=== PATIENT | female | born 1950 | race Caucasian/White ===

== ENCOUNTER 2020-09-23 15:41 | Outpatient (REF) | payer MEDICARE, SELFPAY ==
--- NOTE | ~2020-09-23 | MM_ITS ---
EXAMINATION: MM SCREENING DIGITAL BREAST TOMOSYNTHESIS, BILATERAL CLINICAL INFORMATION: Screening. Asymptomatic. The lifetime risk of breast cancer based on the Tyrer-Cuzick Model is 5%. COMPARISON: Mammography: 09/18/2019, 09/12/2018, 08/23/2017. TECHNIQUE: Digital breast tomosynthesis is performed in both the craniocaudal and mediolateral oblique views along with computer-aided detection (CAD). Synthesized 2D images are generated from the tomosynthesis. FINDINGS: There are scattered areas of fibroglandular density (ACR BI-RADS breast composition Category b). There are no significant masses, abnormal calcifications, or other abnormalities. The axilla and skin contours are unremarkable. No significant changes. MM/MM tomosynthesis screening BI IMPRESSION: No mammographic evidence of malignancy. ASSESSMENT: BI-RADS 1: Negative RECOMMENDATION: Routine annual mammography screening. This patient's information was entered into a reminder system with a target due date for their next mammogram.
== END 2020-09-23 15:42 | disposition home or self-care (01) ==
LOC: HO.MAMMO 15:41
PROVIDERS: Visit Provider Internal Medicine
DX: Z12.31 Encounter for screening mammogram for malignant neoplasm of breast (principal)
CPT/HCPCS: 77063; 77067

== ENCOUNTER 2021-06-01 08:57 | Outpatient (REF) | payer MEDICARE, SELFPAY ==
[2021-06-01 11:27] LABS: MANUAL DIFF FLAG NO
[2021-06-01 11:35] LABS: Basophils Percent Auto 0.8 % (0-2); Eosinophils Absolute Auto 0.2 X10*3/uL (0.0-0.4); Eosinophils Percent Auto 3.7 % (0-4); Hematocrit 43.2 % (37-47); Hemoglobin 14.3 g/dl (12.0-16.0); Imm Gran Abs Auto 0.01 X10*3/uL (0.00-0.03); Imm Gran Pct Auto 0.2 % (0.0-0.4); Lymphocytes Absolute Auto 1.4 X10*3/uL (1.2-4.9); Lymphocytes Percent Auto 27.6 % (20-40); Mean Corpuscular HGB Conc 33.1 g/dl (31.0-35.0); Mean Corpuscular Volume 87.6 fL (80-98); Mean Platelet Volume 9.1 fL (9.4-12.3); Monocytes Absolute Auto 0.5 X10*3/uL (0.1-1.2); Monocytes Percent Auto 9.1 % (2-11); Neutrophils Absolute Auto 2.9 X10*3/uL (2.0-8.3); Neutrophils Percent Auto 58.6 % (45-73); Platelet Count 239 X10*3/uL (160-400); Red Blood Count 4.93 X10*6/uL (4.20-5.50); Red Cell Distribution Width 13.3 % (11.0-16.0); White Blood Count 4.9 X10*3/uL (4.8-10.8)
[2021-06-01 12:16] LABS: Thyroid Stimulating Hormone 1.83 uIU/mL (0.32-4.0); Vitamin D 25-OH Total 25.4 ng/mL (>30)
== END 2021-06-01 08:58 | disposition home or self-care (01) ==
LOC: HO.HMGCLDS 08:57
PROVIDERS: PCP Internal Medicine; Visit Provider Internal Medicine
DX: R42 Dizziness and giddiness (principal)
CPT/HCPCS: 36415; 82306; 84443; 85025

== ENCOUNTER 2021-06-03 07:39 | Outpatient (REF) | payer MEDICARE, SELFPAY ==
[2021-06-03 12:06] LABS: Alanine Aminotransferase 10 U/L (0-31); Albumin Level 4.3 g/dL (3.5-5.0); Alkaline Phosphatase 76 U/L (39-117); Anion Gap 13 (12-20); Aspartate Amino Transferase 17 U/L (5-31); Bilirubin Total 0.8 mg/dL (0.0-1.0); Blood Urea Nitrogen 13 mg/dL (9-16); Calcium 9.1 mg/dL (8.4-10.2); Carbon Dioxide 29 mmol/L (22-29); Chloride 104 mmol/L (96-108); Cholesterol 222 mg/dL; Estimated Glomerular Filt Rate > 60; Glucose Fasting 80 mg/dL (60-99); HDL Cholesterol 44 mg/dL; LDL Cholesterol Calculated 145 mg/dl; Potassium 3.7 mmol/L (3.3-5.1); Sodium 142 mmol/L (135-145); Triglycerides 168 mg/dL
== END 2021-06-03 07:40 | disposition home or self-care (01) ==
LOC: HO.HMGCLDS 07:39
PROVIDERS: PCP Internal Medicine; Visit Provider Internal Medicine
DX: R42 Dizziness and giddiness (principal)
CPT/HCPCS: 36415; 80053; 80061

== ENCOUNTER 2021-09-28 07:51 | Outpatient (REF) | payer MEDICARE, SELFPAY ==
--- NOTE | ~2021-09-28 | MM_ITS ---
EXAMINATION: MM SCREENING DIGITAL BREAST TOMOSYNTHESIS, BILATERAL CLINICAL INFORMATION: Screening. Asymptomatic. The lifetime risk of breast cancer based on the Tyrer-Cuzick Model is 5%. COMPARISON: Mammography: 09/23/2020, 09/18/2019, 09/12/2018, 08/23/2017, 05/26/2016 TECHNIQUE: Digital breast tomosynthesis is performed in both the craniocaudal and mediolateral oblique views along with computer-aided detection (CAD). Synthesized 2D images are generated from the tomosynthesis. FINDINGS: There are scattered areas of fibroglandular density (ACR BI-RADS breast composition Category b). There are no significant masses, abnormal calcifications, or other abnormalities. There are shifting fibroglandular densities from year to year related to positioning. No developing density or interval architectural changes. No significant change from prior studies. MM/MM tomosynthesis screening BI IMPRESSION: No mammographic evidence of malignancy. ASSESSMENT: BI-RADS 1: Negative RECOMMENDATION: Routine annual mammography screening. This patient's information was entered into a reminder system with a target due date for their next mammogram.
== END 2021-09-28 07:52 | disposition home or self-care (01) ==
LOC: HO.MAMMO 07:51
PROVIDERS: PCP Internal Medicine; Visit Provider Internal Medicine
DX: Z12.31 Encounter for screening mammogram for malignant neoplasm of breast (principal)
CPT/HCPCS: 77063; 77067

== ENCOUNTER 2022-04-23 14:18 | Outpatient (REF) | payer MEDICARE, SELFPAY ==
--- NOTE | ~2022-04-23 | US_ITS ---
EXAMINATION: US VENOUS ULTRASOUND WITH DOPPLER LOWER EXTREMITY, RIGHT CLINICAL INFORMATION: Pain right calf. Assess for occult DVT. COMPARISON: None TECHNIQUE: Ultrasound of the deep veins is performed from the hip to the calf with compression sonography and color and pulse Doppler assessment. Spectral analysis with color-flow imaging is performed. FINDINGS: There is normal venous compression and respiratory variation and augmented flow. The visualized common femoral vein, superficial femoral vein, profunda femoral vein, popliteal vein, and the trifurcation region shows no evidence of deep venous thrombosis. There is fluid collection overlying the musculature posterior medial calf measuring 0.9 cm in thickness by 5 cm in length with fine linear extension more distally into the right lower leg. There is no hyperemia on color Doppler. No visible intramuscular hematoma or soft tissue mass. US/US venous duplex LE RT IMPRESSION: -Superficial fluid collection overlying medial calf musculature 0.9 cm in thickness by 5 cm in length with fine linear extension more distally into the right lower leg. Finding may be related to ruptured popliteal fossa cyst or sequela from trauma. Clinically correlate. -No DVT demonstrated in the right lower extremity.
== END 2022-04-23 14:19 | disposition home or self-care (01) ==
LOC: HO.US 14:18
PROVIDERS: PCP Internal Medicine; Visit Provider Internal Medicine
DX: I82.431 Acute embolism and thrombosis of right popliteal vein (principal)
CPT/HCPCS: 93971

== ENCOUNTER 2022-06-02 08:00 | Outpatient (REF) | payer MEDICARE, SELFPAY ==
[2022-06-02 11:27] LABS: MANUAL DIFF FLAG NO
[2022-06-02 11:29] LABS: Appearance Urine Clear; Color Urine Yellow; Glucose Urine UA Negative (Negative); Leukocyte Esterase Urine Moderate (2+) (Negative); Nitrite Urine Negative (Negative); PH 6.5 (5.0-9.0); Specific Gravity - Urine 1.015 (1.005-1.025); UMIC TRIGGER UA YES; Urine Blood Trace (Negative); Urine Ketones Negative (Negative); Urine Protein Negative (Neg-Trace)
[2022-06-02 11:35] LABS: Basophils Percent Auto 0.9 % (0-2); Eosinophils Absolute Auto 0.2 X10*3/uL (0.0-0.4); Eosinophils Percent Auto 3.9 % (0-4); Hematocrit 42.8 % (37.0-47.0); Hemoglobin 14.5 g/dl (12.0-16.0); Imm Gran Abs Auto 0.01 X10*3/uL (0.00-0.03); Imm Gran Pct Auto 0.2 % (0.0-0.4); Lymphocytes Absolute Auto 1.7 X10*3/uL (1.2-4.9); Lymphocytes Percent Auto 36.6 % (20-40); Mean Corpuscular HGB Conc 33.9 g/dl (31.0-35.0); Mean Corpuscular Hemoglobin 30.6 pg (27.0-33.0); Mean Corpuscular Volume 90.3 fL (80.0-98.0); Mean Platelet Volume 9.9 fL (9.4-12.3); Monocytes Absolute Auto 0.4 X10*3/uL (0.1-1.2); Neutrophils Absolute Auto 2.3 x10*3/uL (2.0-8.3); Neutrophils Percent Auto 49.4 % (45-73); Platelet Count 212 X10*3/uL (160-400); Red Blood Count 4.74 X10*6/uL (4.20-5.50); Red Cell Distribution Width 13.1 % (11.0-16.0); White Blood Count 4.6 X10*3/uL (4.8-10.8)
[2022-06-02 11:36] LABS: Bacteria Urine None Seen (None Seen); Hyaline Casts Urine 0-2 /LPF (0-2); RBC Urine 0-2 /HPF (0-2)
[2022-06-02 11:56] LABS: Alanine Aminotransferase 10 U/L (0-31); Albumin Level 4.3 g/dL (3.5-5.0); Alkaline Phosphatase 66 U/L (39-117); Anion Gap 13 (12-20); Aspartate Amino Transferase 17 U/L (5-31); Bilirubin Total 0.8 mg/dL (0.0-1.0); Blood Urea Nitrogen 14 mg/dL (9-16); Calcium 8.9 mg/dL (8.4-10.2); Carbon Dioxide 28 mmol/L (22-29); Chloride 105 mmol/L (96-108); Cholesterol 209 mg/dL; Estimated Glomerular Filt Rate > 60; Glucose Fasting 80 mg/dL (60-99); HDL Cholesterol 49 mg/dL; LDL Cholesterol Calculated 142 mg/dl; Potassium 3.6 mmol/L (3.3-5.1); Sodium 142 mmol/L (135-145); Total Protein 6.6 g/dL (6.5-8.0); Triglycerides 91 mg/dL
[2022-06-02 12:20] LABS: Thyroid Stimulating Hormone 2.25 uIU/mL (0.32-4.0); Vitamin D 25-OH Total 24.2 ng/mL (>30)
== END 2022-06-02 08:01 | disposition home or self-care (01) ==
LOC: HO.HMGCLDS 08:00
PROVIDERS: PCP Internal Medicine; Visit Provider Internal Medicine
DX: Z00.00 Encounter for general adult medical examination without abnormal findings (principal); R09.89 Other specified symptoms and signs involving the circulatory and respiratory systems
CPT/HCPCS: 36415; 80053; 80061; 81001; 82306; 84443; 85025

== ENCOUNTER 2022-06-17 15:28 | Outpatient (REF) | payer MEDICARE, SELFPAY ==
--- NOTE | ~2022-06-17 | US_ITS ---
EXAMINATION: US EXTRACRANIAL CAROTID DUPLEX, BILATERAL CLINICAL INFORMATION: Decreased carotid pulses COMPARISON: None TECHNIQUE: Real-time ultrasound and Doppler techniques (integrating B-mode 2-D vascular images, Doppler spectral analysis and color-flow Doppler imaging) were utilized to interrogate the extracranial carotid arteries, the vertebral arteries and proximal subclavian arteries bilaterally. The degree of stenosis is determined by criteria similar to NASCET. FINDINGS: Right Side: 1. There is mild atherosclerotic plaque seen in the bifurcation/proximal ICA region. 2. The common carotid artery PSV proximally is 97 cm/s and distally 90 cm/s. 3. The proximal internal carotid artery velocities are 83 cm/s systolic and 39 cm/s diastolic. 4. The proximal external carotid artery PSV is 87 cm/s. 5. The vertebral artery shows antegrade flow. 6. The subclavian artery waveforms are normal. Left Side: 1. There is mild atherosclerotic plaque seen in the bifurcation/proximal ICA region. 2. The common carotid artery PSV proximally is 108 cm/s and distally 94 cm/s. 3. The proximal internal carotid artery velocities are 62 cm/s systolic and 14 cm/s diastolic. 4. The proximal external carotid artery PSV is 114 cm/s. 5. The vertebral artery shows antegrade flow. 6. The subclavian artery waveforms are normal. US/US carotid duplex BI IMPRESSION: 1. RIGHT: Minimal, non-hemodynamically significant stenosis of the proximal right internal carotid artery corresponding to a 0-49% stenosis by velocity criteria. 2. LEFT: Minimal, non-hemodynamically significant stenosis of the proximal left internal carotid artery corresponding to a 0-49% stenosis by velocity criteria.
== END 2022-06-17 15:29 | disposition home or self-care (01) ==
LOC: HO.HMGCX 15:28
PROVIDERS: PCP Internal Medicine; Visit Provider Internal Medicine
DX: R09.89 Other specified symptoms and signs involving the circulatory and respiratory systems (principal)
CPT/HCPCS: 93880

== ENCOUNTER 2022-10-04 08:09 | Outpatient (REF) | payer MEDICARE, SELFPAY ==
--- NOTE | ~2022-10-04 | MM_ITS ---
EXAMINATION: MM SCREENING DIGITAL BREAST TOMOSYNTHESIS, BILATERAL CLINICAL INFORMATION: Screening. Asymptomatic. The lifetime risk of breast cancer based on the Tyrer-Cuzick Model is 4%. COMPARISON: Mammography: 09/28/2021, 09/23/2020, 09/18/2019 TECHNIQUE: Digital breast tomosynthesis is performed in both the craniocaudal and mediolateral oblique views along with computer-aided detection (CAD). Synthesized 2D images are generated from the tomosynthesis. FINDINGS: There are scattered areas of fibroglandular density (ACR BI-RADS breast composition Category b). There are no significant masses, abnormal calcifications, or other abnormalities. No architectural abnormality or developing density or significant change from prior studies. MM/MM tomosynthesis screening BI IMPRESSION: No mammographic evidence of malignancy. ASSESSMENT: BI-RADS 1: Negative RECOMMENDATION: Routine annual mammography screening. This patient's information was entered into a reminder system with a target due date for their next mammogram.
== END 2022-10-04 08:10 | disposition home or self-care (01) ==
LOC: HO.MAMMO 08:09
PROVIDERS: PCP Internal Medicine; Visit Provider Internal Medicine
DX: Z12.31 Encounter for screening mammogram for malignant neoplasm of breast (principal)
CPT/HCPCS: 77063; 77067

== ENCOUNTER 2022-12-22 07:27 | Outpatient (REF) | payer MEDICARE, SELFPAY ==
[2022-12-22 11:33] LABS: MANUAL DIFF FLAG NO
[2022-12-22 11:53] LABS: Basophils Percent Auto 0.9 % (0-2); Eosinophils Absolute Auto 0.2 X10*3/uL (0.0-0.4); Eosinophils Percent Auto 3.8 % (0-4); Hematocrit 43.9 % (37.0-47.0); Hemoglobin 14.4 g/dl (12.0-16.0); Imm Gran Abs Auto 0.01 X10*3/uL (0.00-0.03); Imm Gran Pct Auto 0.2 % (0.0-0.4); Lymphocytes Absolute Auto 1.9 X10*3/uL (1.2-4.9); Lymphocytes Percent Auto 42.8 % (20-40); Mean Corpuscular HGB Conc 32.8 g/dl (31.0-35.0); Mean Corpuscular Hemoglobin 28.5 pg (27.0-33.0); Mean Corpuscular Volume 86.9 fL (80.0-98.0); Mean Platelet Volume 9.1 fL (9.4-12.3); Monocytes Absolute Auto 0.4 X10*3/uL (0.1-1.2); Monocytes Percent Auto 8.6 % (2-11); Neutrophils Percent Auto 43.7 % (45-73); Platelet Count 214 X10*3/uL (160-400); Red Blood Count 5.05 X10*6/uL (4.20-5.50); Red Cell Distribution Width 13.3 % (11.0-16.0); White Blood Count 4.5 X10*3/uL (4.8-10.8)
[2022-12-22 12:58] LABS: Cholesterol 224 mg/dL; HDL Cholesterol 46 mg/dL; LDL Cholesterol Calculated 155 mg/dl; Triglycerides 115 mg/dL
== END 2022-12-22 07:28 | disposition home or self-care (01) ==
LOC: HO.HMGCLDS 07:27
PROVIDERS: PCP Internal Medicine; Visit Provider Internal Medicine
DX: E78.00 Pure hypercholesterolemia, unspecified (principal)
CPT/HCPCS: 36415; 80061; 85025

== ENCOUNTER 2023-08-12 08:36 | Outpatient (REF) | payer MEDICARE, SELFPAY | END 2023-08-12 08:37 | disposition home or self-care (01) | LOC: HO.HMGCLDS 08:36 | PROVIDERS: PCP Internal Medicine; Visit Provider Internal Medicine | DX: E78.00 Pure hypercholesterolemia, unspecified (principal) | CPT/HCPCS: 36415; 80053; 80061; 85025 ==

== ENCOUNTER 2023-10-19 07:39 | Outpatient (REF) | payer MEDICARE, SELFPAY | END 2023-10-19 07:40 | disposition home or self-care (01) | LOC: HO.MAMMO 07:39 | PROVIDERS: PCP Internal Medicine; Visit Provider Internal Medicine | DX: Z12.31 Encounter for screening mammogram for malignant neoplasm of breast (principal) | CPT/HCPCS: 77063; 77067 ==

== ENCOUNTER → 2023-10-19 07:45 | Outpatient (BNV) | payer MEDICARE, SELFPAY | PROVIDERS: PCP Internal Medicine; Visit Provider Radiology Diagnostic Radiology | DX: Z12.31 Encounter for screening mammogram for malignant neoplasm of breast (principal) | CPT/HCPCS: 77063; 77067 ==

== ENCOUNTER 2024-09-18 09:04 | Outpatient (AMB) | payer MEDICARE, SELFPAY ==
--- NOTE | 2024-09-18 09:15 | A.OFFPC_ITS ---
Vital Signs 09/18/24 09:21 Height 5 ft 3 in Weight 146 lb BMI 25.9 BP 124/76 Blood Pressure Location Lt brachial Pulse 59 Pulse Source Pulse Oximeter Temp 97.2 F Pulse Oximetry (%) 98 Intake Visit Reasons: physical Intake Note: no other issues Allergies No Known Allergies Allergy (Verified 09/18/24 09:42) Medication List - Last Reconciled 09/18/24 by Tasneem Alcantara PA-C atorvastatin 10 mg PO BEDTIME PFSH Medical History (Updated 09/18/24 @ 09:44 by Tasneem Alcantara PA-C) Overweight Chronic pain of right knee Annual physical exam Mild hypercholesterolemia Surgical History (Updated 09/18/24 @ 09:11 by Tasneem Alcantara PA-C) S/P right knee arthroscopy H/O wisdom tooth extraction History of tonsillectomy Physical exam (Primary Care) Vital Signs: Last Vital Signs Temp 97.2 F 09/18/24 09:21 Pulse 59 09/18/24 09:21 BP 124/76 09/18/24 09:21 Pulse Ox 98 09/18/24 09:21 Care Plan Goal for BP management: <130/80 at goal BMI result Body Mass Index 25.9 BMI Assessment/Plan discussion: High BMI High, discussed plan: lifestyle, weight reduction, dietary, physical activity and alcohol moderation Coding Level of Care Code New Pt Prev Care >65yr (49551) Diagnoses Annual physical exam Z00.00 Chronic pain of right knee M25.561; G89.29 S/P right knee arthroscopy Z98.890 Mild hypercholesterolemia E78.00 Overweight E66.3 Assessment & Plan Assessment & Plan (1) Annual physical exam: Code(s): Z00.00 - Encounter for general adult medical examination without abnormal findings Category: Medical Plan: Annual physical exam. (2) Chronic pain of right knee: Code(s): M25.561 - Pain in right knee; G89.29 - Other chronic pain Category: Medical Plan: Patient to continue being followed by ortho and receiving cortisone injections as needed. Condition is chronic and stable. (3) S/P right knee arthroscopy: Comment: Due to torn cartilage, Dr. Villalobos Code(s): Z98.890 - Other specified postprocedural states Category: Medical Plan: Patient to continue being followed by ortho and receiving cortisone injections as needed. Condition is chronic and stable. (4) Mild hypercholesterolemia: Code(s): E78.00 - Pure hypercholesterolemia, unspecified Category: Medical Plan: Patient currently on atorvastatin 10 mg daily. Condition is chronic and stable continue to monitor. (5) Overweight: Code(s): E66.3 - Overweight Category: Medical Plan: Patient to improve her diet and exercise regimen. Condition is chronic and stable continue to monitor. Plan Plan - Continue atorvastatin for managing hyperlipidemia to maintain LDL within target range. - Complete current course of antibiotics for acute sinusitis, initiated on the most recent Tuesday. - Repeat blood work including C-reactive protein, CBC, CMP, hemoglobin A1c, lipid panel, liver panel, magnesium, TSH, vitamin , and vitamin D levels when fasting. - Confirm with the patient if the upcoming mammogram appointment is scheduled. - Evaluate previous colonoscopy results from 2018 and consider the timing for the next one. Orders: Orders Comprehensive [place]. Panel Fast Today Z00.00 - Encounter for general adult medical examination without abnormal findings Hemoglobin A1c Today Z00.00 - Encounter for general adult medical examination without abnormal findings Magnesium Today Z00.00 - Encounter for general adult medical examination without abnormal findings Vitamin B12 and Folate Today Z00.00 - Encounter for general adult medical examination without abnormal findings Vitamin D 25-OH Total Today Z00.00 - Encounter for general adult medical examination without abnormal findings TSH reflex Free T4 Today Z00.00 - Encounter for general adult medical examination without abnormal findings C Reactive Protein Today Z00.00 - Encounter for general adult medical examination without abnormal findings Complete Blood Count Auto Diff Today Z00.00 - Encounter for general adult medical examination without abnormal findings Lipid Panel Today Z00.00 - Encounter for general adult medical examination without abnormal findings Liver Panel Today Z00.00 - Encounter for general adult medical examination without abnormal findings Patient Instructions: Patient Instructions - Continue taking atorvastatin as prescribed. - Finish the current course of antibiotics for sinus infection. - Schedule and complete fasting blood tests as discussed. - Maintain your upcoming mammogram and colonoscopy appointments. - Monitor for any new symptoms or changes, and inform us if they occur. - Keep up with regular exercise and nutrition as it contributes significantly to your health. Scribe Plan - Not visible on output: History of Present Illness The patient is a 73-year-old female presenting for an annual physical examination and follow-up for her chronic conditions, particularly hyperlipidemia. Hyperlipidemia was identified previously with a recorded LDL level of 113 mg/dL. She is currently managing this condition with 10 mg daily of atorvastatin. Additionally, she reports experiencing acute sinusitis for which she is taking antibiotics, commencing treatment this past Tuesday following symptom onset on Tuesday. Katja also mentions a history of pain in her knee, for which she recently received a cortisone injection administered by her son, who is a Physician Cash Sales Audit Clerk. She reports that this intervention has effectively alleviated her knee pain, with no current discomfort. Her last blood work was conducted on August 12, 2023, indicating elevated LDL but was otherwise unremar kable. Additionally, she discussed her participation in preventative measures, including regular mammograms and a colonoscopy performed in 2018. 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 - , with family actively involved in supporting her, including her son, an orthopedic PA. - Has a social network including extensive family and grandchildren. - Reports a history of receiving immunizations for influenza, COVID-19, and RSV. - Active in family events, looks after grandchildren and participates in their activities. Review of Systems - Head and Neck: Reports nasal congestion. - Musculoskeletal: Reports no current knee pain. - Genitourinary: Denies dysuria. - Gastrointestinal: Denies abdominal pain or bowel changes. Physical Exam Appearance: Alert. Oriented X3. No acute distress. Head: Normal external exam. Normocephalic. Atraumatic. Eyes: Pupils are equal, round, and reactive to light. Extraocular movements intact. Conjunctiva and sclera normal. Eyelids normal. Ears: External auditory canal normal. Tympanic membranes show a little redness, mainly in one ear. Throat: Pharynx normal. Uvula midline. Moist mucous membranes. Neck: Normal inspection. Neck supple. Full range of motion. No adenopathy. Thyroid Normal. No meningeal signs. No neck mass noted. Cardiovascular: Normal heart rate and rhythm. Heart sound normal. No murmurs noted. Pulses normal throughout. Respiratory: No respiratory distress. Painless inspiration. Breath sounds normal. No wheezes/rales/rhonchi noted. Chest nontender. No accessory muscle usage noted or decreased air movement noted. Abdomen: Soft and nontender. Back: No costovertebral angle tenderness. Full range of motion noted. Skin: Skin warm and dry. Normal skin color. Normal skin turgor. No rashes/lesions/lacerations noted. Extremities: No lower extremity edema. Extremities exhibit normal range of motion. Extremities nontender. Neuro: Oriented X 3. No motor deficit. No sensory deficit. Reflexes normal. Plan - Continue atorvastatin for managing hyperlipidemia to maintain LDL within target range. - Complete current course of antibiotics for acute sinusitis, initiated on the most recent Tuesday. - Repeat blood work including C-reactive protein, CBC, CMP, hemoglobin A1c, lipid panel, liver panel, magnesium, TSH, vitamin , and vitamin D levels when fasting. - Confirm with the patient if the upcoming mammogram appointment is scheduled. - Evaluate previous colonoscopy results from 2018 and consider the timing for the next one. Patient was informed and verbally consented to the use of an ambient scribe for clinic note documentation during this visit. Discussion Notes I explained the importance of monitoring her chronic conditions, particularly hyperlipidemia, and the continued use of atorvastatin to manage LDL levels. We discussed the current antibiotic regimen for sinusitis and its expected timeline and benefits. The patient understands and agrees to the recommended repeat of blood work with fasting beforehand. I reviewed the sufficiency of her immunizations and noted her compliance. I highlighted the importance of keeping her upcoming mammogram appointment and queried about the scheduling of future colonoscopies, assessing her readiness for the associated procedures. I advised continuing with the current plan and reiterated that she should reach out to our office if symptoms worsen or new issues arise. Follow-up is suggested in one year unless otherwise needed. Patient Instructions - Continue taking atorvastatin as prescribed. - Finish the current course of antibiotics for sinus infection. - Schedule and complete fasting blood tests as discussed. - Maintain your upcoming mammogram and colonoscopy appointments. - Monitor for any new symptoms or changes, and inform us if they occur. - Keep up with regular exercise and nutrition as it contributes significantly to your health.
[2024-09-18 09:21] VITALS: BP 124/76; PULSE 59; TEMP 36.2; O2SAT 98; BMI 25.9
--- OUTSIDE RECORDS SUMMARY | 2024-09-18 09:56 | XMS_ITS | Patient Health Record ---
Author Organization Navneet Curry DO, FACP Address [address] [place] [phone] Care Team Providers Care Dry Cleaner Presser Name Role Phone Navneet Curry Primary Care Provider ALLERGIES No Known Allergies RESULTS Component Value Reference Range Notes MM tomosynthesis screening B I Reviewed date:10/24/2023 01:03:28 PM Interpretation:Negative Performing Lab: Notes/Report: [address] [place] [address] Mammography Report Signed Patient: Katja Pulido MR#: [id number] : 1950 Acct:[id number] Age/Sex: 72 / F ADM Date: 10/19/23 Loc: HO.MAMMO Attending Dr: Navneet Curry DO Ordering Physician: Navneet Curry DO Results: 1Negat kathryn Date of Service: 10/19/23 Follow Up: 1 [facility] From [facility] Mamm[facility] Procedure(s): MM tomosynthesis screening BI Accession Number(s): [id number] cc: Navneet Curry DO EXAMINATION: MM SCREENING DIGITAL BREAST TOMOSYNTHESIS, BILATERAL CLINICAL INFORMATION: Screening. Asymptomatic. COMPARISON: Mammography: This study is compared with prior exams dating back to 2019. TECHNIQUE: Digital breast tomosynthesis is performed in both the craniocaudal and mediolateral oblique views along with computer-aided detection (CAD). Synthesized 2D images are generated from the tomosynthesis. FINDINGS: There are scattered areas of fibroglandular density (ACR BI-RADS breast composition Category b). There are no significant masses, abnormal calcifications, or other abnormalities. MM/MM tomosynthesis screening BI IMPRESSION: No mammographic evidence of malignancy. ASSESSMENT: BI-RADS BI-RADS 1 - Negative RECOMMENDATION: Routine annual mammography screening. 1 year F/U This examination should not preclude the clinical evaluation of a suspicious palpable abnormality. This patient's information was entered into a reminder system with a target due date for their next mammogram. Dictated By: Brisa Gutierrez MD Signed By: <Electronically signed by Brisa Gutierrez MD in OV> 10/24/23 0542 DD/ 0800 TD/TT: Shank Paperer: REASON FOR REFERRAL No Information MEDICATIONS Medication SIG (Take, Route, Frequency, Duration) Notes Start Date End Date Status Atorvastatin Calcium 10 MG 1 tablet Oral ly Once a day for 90 days Active IMMUNIZATIONS Vaccine Route Administration Date Status Comme nts Influenza Unknown 05/09/2014 Administered Pneumococcal - PPSV23 IM Intramuscular 10/18/2014 Administ ered Influenza Unknown 05/22/2015 Administered Influenza IM Intramuscular 05/13/2016 Administered Influenza High Dose IM Intramuscular 05/09/2017 Administer ed Influenza High Dose IM Intramuscular 04/18/2018 Administer ed COVID-19 Pfizer Bivalent Unknown 05/06/2022 Administere d COVID-19 Pfizer BioNTech Unknown 09/29/2020 Administere d Influenza High Dose Unknown 04/10/2020 Administered Flu-aIIV4 Unknown 04/27/2021 Administered Influenza Quad Unknown 05/03/2019 Administered COVID-19 Pfizer BioNTech Unknown 10/20/2020 Administere d Shingrix Unknown 05/12/2020 Administered COVID-19 Pfizer BioNTech Unknown 11/12/2021 Administere d Shingrix Unknown 07/21/2020 Administered COVID-19 Pfizer BioNTech Unknown 05/08/2021 Administere d Influnza High Dose Quad Unknown 05/12/2022 Administered TDaP Unknown 05/05/2023 Administered Influnza High Dose Quad Unknown 05/05/2023 Administered Influenza High Dose Unknown 05/06/2024 Administered SOCIAL HISTORY Tobacco Use: Social History Observation Description Date Details (start date - stop date) Never Smoker NA - NA Sex Assigned At : Social History Observation Description Sex Assigned At Unknown Tobacco Use/Smoking Question Answer Notes Patient is a nonsmoker Additional Findings: Tobacco Non-User Cu rrent non-smoker, currently using no form of tobacco Alcohol Screen Question Answer Notes Did you have a drink contain ing alcohol in the past year? Yes How often did you have a dri nk containing alcohol in the past year? Monthly or less (1 point) How many drinks did you have on a typical day when you were drinking in the past year? 1 or 2 drinks (0 point) How often did you have 6 or more drinks on one occasion in the past year? Never (0 point) Points 1 Interpretation Negative PROBLEMS Problem Type ICD Code Onset Dates Problem Status W/U Status Risk SNOMED Code Notes Problem Right hip pain (M25.551) Active confirmed [id number] Problem Right foot pain (M79.671) Active confirmed 30691671 Problem Dry mouth (R68.2) Active confirmed 8771 5008 Problem Hypercholesterolemia (E78.00) Active confirmed 68344901 Encounters Encounter Location Date Provider Diagnosis Navneet Curry DO, [address] [phone] 08/21/2024 Navneet Curry PLAN OF TREATMENT Pending Test Test Name Order Date CBC w DIFF 12/29/2022 LIPOPROTEIN FRACTIONATION (LIPID PANEL) 12/29/2022 PROFILE, FASTING 12/29/2022 Insurance Providers Payer Name Payer Address Payer Phone Subscriber Number Group Number Insured Name Patient Relationship to Insured Coverage Start Date Coverage End Date MEDICARE [address] [place] [phone] [id number] Katja Crandall Self - patient is the insured MEDEX [address] [place] [address] [id number] Katja Crandall Self - patient is the insured MEDICAL (GENERAL) HISTORY Medical History History ICD Code fractured left ankle Hypercholesterolemia E78.00 Surgical History Surgery Date(Month/Year) tonsillectomy wisdom teeth extraction right knee arthroscopy due to torn kaykay hart Dr. Instrum
--- OUTSIDE RECORDS SUMMARY | 2024-09-18 09:57 | XMS_ITS ---
Author Organization Navneet Curry DO, FACP Address [address] [place] [address], [place] [id number] Care Team Providers Care Outside Sales Account Representative Name Role Phone Navneet Curry Primary Care Provider ALLERGIES No Known Allergies REASON FOR VISIT physical, annual visit, Follow up Hypercholesterolemia MEDICATIONS Medication SIG (Take, Route, Frequency, Duration) Notes Start Date End Date Status Atorvastatin Calcium 10 MG 1 tablet Oral ly Once a day Active SOCIAL HISTORY Tobacco Use: Social History Observation [...] Never (0 point) Points 1 Interpretation Negative VITAL SIGNS BMI 26.85 kg/m2 08/16/2023 Blood pressure systolic 126 mm Hg 08/16/19 24 Blood pressure diastolic 78 mm Hg 024 Height 63.5 in 08/16/2023 Weight 154 lbs 08/16/2023 Encounters Encounter Location Date Provider Diagnosis Navneet Curry DO [facility] [address], [place] [id number] 08/16/2023 Navneet Curry Hypercholesterolemia E78.00 ASSESSMENTS Encounter Date Diagnosis Assessment Notes Treatment Notes Treatment Clinical Notes 08/16/2023 Hypercholesterolemia (ICD-10 - E78.00) PLAN OF TREATMENT Medication Medication Name Sig Start Date Stop Date Notes Atorvastatin Calcium 10 MG 1 tablet Orally Once a day Next Appt Details Follow Up: 1 Year, Reason: H &P Progress Notes * Examination Category Sub-Category Detail Notes General Examination GENERAL APPEARANCE: well dev eloped, well nourished, in no acute distress HEAD: normocephalic, atrau matic EYES: pupils equal, round, reactive to light and accommodation, sclera non-icteric EARS: normal NECK/THYROID: full range of motion , no cervical lymphadenopathy, thyroid normal, no carotid bruit HEART: regular rate and rhy thm, S1, S2 normal, no murmurs LUNGS: clear to auscultatio n bilaterally ABDOMEN: soft, nontender, non distended, bowel sounds present, normal NEUROLOGIC: nonfocal, motor stre ngth normal upper and lower extremities, sensory exam intact SKIN: warm and dry EXTREMITIES: no edema PERIPHERAL PULSES: 2+ dorsalis pedis, 2 + posterior tibial BREASTS: per SEED BUYER RECTAL EXAM: PSYCH: alert, oriented, cog nitive function intact FEMALE GENITOURINARY: per SEED BUYER History and Physical Notes * HPI (History of Present Illness) Category Sub-Category Detail Notes Depression Screening PHQ-9 Little inte rest or pleasure in doing things: Not at all Feeling down, depressed, or hopeless: No t at all Trouble falling or staying asleep, or sl eeping too much: Not at all Feeling tired or having little energy: N ot at all Poor appetite or overeating: Not at all Feeling bad about yourself o r that you are a failure, or have let yourself or your family down: Not at all Trouble concentrating on thi ngs, such as reading the newspaper or watching television: Not at all Moving or speaking so slowly that other people could have noticed; or the opposite, being so fidgety or restless that you have been moving around a lot more than usual: Not at all Thoughts that you would be b leticia off or of hurting yourself in some way: Not at all Total Score: 0 Interpretation and Intervention Depression Larissa graham Findings: Negative Follow-Up for Depression: : Review of PH Q-9 found negative result; no follow-up needed Fall Risk Fall History Have you had two or more fal ls in the past year?: No Have you had any falls with injury in th e past year?: No Fall Risk Assessment:: No falls in the p ast year Communication Needs PCMH Communication Needs - [facility] Juan Carlos vazquez Impairment?: No Vision Impairment?: Yes wears glasses Cognitive Impairment?: No SDOH Questions SDOH Questions In the past year have you been worried about losing your housing?: No In the past year have you or any family members you live with been unable to get any of the following when it was really needed? Check all that apply:: None
--- OUTSIDE RECORDS SUMMARY | 2024-09-18 09:57 | XMS_ITS ---
Author Organization Navneet Curry DO, FACP Address [address] [place], [place] [id number] Care Team Providers Care Head Mixer Name Role Phone Navneet Curry Primary Care Provider REASON FOR VISIT physical Encounters Encounter Location Date Provider Diagnosis Navneet Curry DO, FACP [address] [place] [phone] 07/05/2023 Navneet Curry PLAN OF TREATMENT No Information
--- OUTSIDE RECORDS SUMMARY | 2024-09-18 09:57 | XMS_ITS ---
Author Organization Navneet Curry DO, FACP Address [address] [place], [place] [phone] Care Team Providers Care Manager Bar Name Role Phone Navneet Curry Primary Care Provider [phone] REASON FOR VISIT patient Encounters Encounter Location Date Provider Diagnosis Navneet Curry DO, FACP [address] [place] [phone] 08/21/2024 Navneet Curry PLAN OF TREATMENT No Information
== END 2024-09-18 09:41 | disposition home or self-care (01) ==
LOC: HO.HMCSH 09:04
PROVIDERS: PCP Internal Medicine; Visit Provider Physician Assistant Medical
DX: Z00.00 Encounter for general adult medical examination without abnormal findings (principal); M25.561 Pain in right knee; G89.29 Other chronic pain; Z98.890 Other specified postprocedural states; E78.00 Pure hypercholesterolemia, unspecified; E66.3 Overweight

== ENCOUNTER → 2024-09-18 09:04 | Outpatient (BNVA) | payer MEDICARE, SELFPAY | PROVIDERS: PCP Internal Medicine; Visit Provider Physician Assistant Medical | DX: Z00.00 Encounter for general adult medical examination without abnormal findings (principal); M25.561 Pain in right knee; G89.29 Other chronic pain; E66.3 Overweight; Z68.25 Body mass index [BMI] 25.0-25.9, adult; E78.00 Pure hypercholesterolemia, unspecified; Z98.890 Other specified postprocedural states; Z71.3 Dietary counseling and surveillance | CPT/HCPCS: 99387 ==

== ENCOUNTER 2024-09-19 06:29 | Outpatient (REF) | payer MEDICARE, SELFPAY ==
--- OUTSIDE RECORDS SUMMARY | 2024-09-19 06:32 | XMS_ITS ---
Author Organization Navneet Curry DO, FACP Address [address] [place], [place] [phone] Care Team Providers Care Roof Plumber Name Role Phone Navneet Curry Primary Care Provider [phone] ALLERGIES No Known Allergies REASON FOR VISIT [...] Location Date Provider Diagnosis Navneet Curry DO [facility] [address], [place] [phone] 08/16/2023 Navneet Curry Hypercholesterolemia E78.00 ASSESSMENTS Encounter [...] pedis, 2 + posterior tibial BREASTS: per LYMPHEDEMA THERAPIST RECTAL EXAM: PSYCH: alert, oriented, cog nitive function intact FEMALE GENITOURINARY: per LYMPHEDEMA THERAPIST History and Physical Notes * HPI (History [...]
--- OUTSIDE RECORDS SUMMARY | 2024-09-19 06:32 | XMS_ITS ---
Author Organization Navneet Curry DO, FACP Address [address] [place], [place] [phone] Care Team Providers Care Enrollment Processor Name Role Phone Navneet Curry Primary Care Provider [phone] REASON FOR VISIT patient Encounters Encounter Location Date Provider Diagnosis Navneet Curry DO, FACP [address] [place] [phone] 08/21/2024 Navneet Curry PLAN OF TREATMENT No Information
--- OUTSIDE RECORDS SUMMARY | 2024-09-19 06:32 | XMS_ITS ---
Author Organization Navneet Curry DO, FACP Address [address] [place], [place] [phone] Care Team Providers Care Eligibility Clerk Name Role Phone Navneet Curry Primary Care Provider REASON FOR VISIT physical Encounters Encounter Location Date Provider Diagnosis Navneet Curry DO, FACP [address] [place] [phone] 07/05/2023 Navneet Curry PLAN OF TREATMENT No Information
[2024-09-19 10:45] LABS: MANUAL DIFF FLAG NO
[2024-09-19 10:57] LABS: Basophils Percent Auto 0.2 % (0-2); Eosinophils Absolute Auto 0.2 X10*3/uL (0.0-0.4); Eosinophils Percent Auto 3.6 % (0-4); Hematocrit 42.1 % (37.0-47.0); Hemoglobin 14.1 g/dl (12.0-16.0); Imm Gran Abs Auto 0.03 X10*3/uL (0.00-0.03); Imm Gran Pct Auto 0.5 % (0.0-0.4); Lymphocytes Percent Auto 34.5 % (20-40); Mean Corpuscular HGB Conc 33.5 g/dl (31.0-35.0); Mean Corpuscular Hemoglobin 29.2 pg (27.0-33.0); Mean Corpuscular Volume 87.2 fL (80.0-98.0); Mean Platelet Volume 9.7 fL (9.4-12.3); Monocytes Absolute Auto 0.6 X10*3/uL (0.1-1.2); Monocytes Percent Auto 9.3 % (2-11); Neutrophils Absolute Auto 3.1 x10*3/uL (2.0-8.3); Neutrophils Percent Auto 51.9 % (45-73); Platelet Count 244 X10*3/uL (160-400); Red Blood Count 4.83 X10*6/uL (4.20-5.50); Red Cell Distribution Width 13.2 % (11.0-16.0); White Blood Count 5.9 X10*3/uL (4.8-10.8)
[2024-09-19 11:05] LABS: Estimated Average Glucose 103 mg/dL; Hemoglobin A1C 120.0423 umol/L; Hemoglobin A1c % 5.2 % (<6.0); Total Hemoglobin (HGBA1C) 3602.3986 umol/L
[2024-09-19 11:27] LABS: Alanine Aminotransferase 16 U/L (0-31); Albumin Level 4.1 g/dL (3.5-5.0); Alkaline Phosphatase 65 U/L (39-117); Anion Gap 11 (12-20); Aspartate Amino Transferase 22 U/L (5-31); Bilirubin Direct 0.2 mg/dL (0.0-0.5); Bilirubin Total 0.6 mg/dL (0.0-1.0); Blood Urea Nitrogen 15 mg/dL (9-16); C Reactive Protein < 0.10 mg/dL (< or = 0.50); Calcium 8.6 mg/dL (8.4-10.2); Carbon Dioxide 27 mmol/L (22-29); Chloride 107 mmol/L (96-108); Cholesterol 151 mg/dL (<200); Estimated Glomerular Filt Rate > 60; Glucose Fasting 90 mg/dL (60-99); HDL Cholesterol 45 mg/dL (>40); LDL Cholesterol Calculated 94 mg/dL (<100); Magnesium 2.3 mg/dL (1.6-2.6); Potassium 3.7 mmol/L (3.3-5.1); Sodium 141 mmol/L (135-145); Total Protein 6.9 g/dL (6.5-8.0); Triglycerides 64 mg/dL (<150)
[2024-09-19 11:28] LABS: TSH reflex Free T4 2.77 uIU/mL (0.32-4.0); Vitamin D 25-OH Total 31.1 ng/mL (>30)
[2024-09-19 11:59] LABS: Folate 13.5 ng/mL (> or = 4.0); Vitamin B12 290 pg/mL (200-900)
== END 2024-09-19 06:30 | disposition home or self-care (01) ==
LOC: HO.HMGCLDS 06:29
PROVIDERS: PCP Internal Medicine; Visit Provider Physician Assistant Medical
DX: Z00.00 Encounter for general adult medical examination without abnormal findings (principal); Z13.1 Encounter for screening for diabetes mellitus; Z13.6 Encounter for screening for cardiovascular disorders
CPT/HCPCS: 36415; 80053; 80061; 80076; 82248; 82306; 82607; 82746; 83036; 83735; 84443; 85025; 86140

== ENCOUNTER 2024-11-01 07:13 | Outpatient (REF) | payer MEDICARE, SELFPAY | END 2024-11-01 07:14 | disposition home or self-care (01) | LOC: HO.MAMMO 07:13 | PROVIDERS: PCP Internal Medicine; Visit Provider Internal Medicine | DX: Z12.31 Encounter for screening mammogram for malignant neoplasm of breast (principal) | CPT/HCPCS: 77063; 77067 ==

== ENCOUNTER → 2024-11-01 07:30 | Outpatient (BNV) | payer MEDICARE, SELFPAY | PROVIDERS: PCP Internal Medicine; Visit Provider Internal Medicine | DX: Z12.31 Encounter for screening mammogram for malignant neoplasm of breast (principal) | CPT/HCPCS: 77063; 77067 ==